=== PATIENT | male | born 1995 ===

== ENCOUNTER 2024-06-04 18:32 | Emergency (ER) | payer OTHER, SELFPAY ==
[2024-06-04 18:39] VITALS: BP 129/69
[2024-06-04 19:58] VITALS: BMI 23.3
[2024-06-04] MEDS: RABAVERT RABIES VACC W-DILUENT 2.5 UNIT IM (21:46)
[2024-06-04 21:49] VITALS: BP 112/64
--- NOTE | 2024-06-04 21:56 | ED.GENMED ---
History of Present Illness
General
Chief Complaint: Rabies
Source: patient
Time Seen by Provider: 06/04/24 20:42
History of Present Illness
History of Present Illness:
28-year-old male presents for rabies vaccine as he found a bat in his house. He states he did release it outside and flew away. He has no complaints. He saw no signs of a bite
Past History
Past History
ED Past Medical History: Asthma
Phy Exam
Physical Exam
Physical Exam:
CONSTITUTIONAL Vital signs reviewed, Patient alert and oriented to person, place and time. Well-appearing
HEAD atraumatic, normocephalic.
EYES eyelids normal to inspection, Extraocular muscles intact, Conjunctiva normal, Sclera normal.
NECK normal range of motion, Trachea midline, no jugular venous distention.
RESP no respiratory distress
UPPER EXTREMITY Gross Range of motion normal, gross motor strength normal
LOWER EXTREMITY Gross range of motion normal, Gross motor strength normal
NEURO Speech normal, No focal motor deficits include, [place] coma scale 15, Memory normal, Cranial Nerves intact to screening exam.
SKIN Skin warm, dry, and normal in color.
PSYCHIATRIC Patient oriented to person place and time, Normal affect.
Course
Orders/Labs/Results
Orders:
Orders
06/04/24 21:45
Rabies Vaccine ([facility])/Pf [Rabavert Rabies Vacc W-Diluent] 2.5 unit IM .ONCE ONE
Vital Signs
Initial and Last Documented VS:
Initial Vital Signs
Temp Pulse Resp BP Pulse Ox
98.1 F 65 20 129/69 97
06/04/24 18:39 06/04/24 18:39 06/04/24 18:39 06/04/24 18:39 06/04/24 18:39
Last Documented Vital Signs
Temp Pulse Resp BP Pulse Ox
98.1 F 53 17 112/64 97
06/04/24 18:39 06/04/24 22:13 06/04/24 22:13 06/04/24 22:13 06/04/24 18:39
MDM/Problems Addressed
MDM/Problems Addressed:
Rabies vaccination, rabies exposure
*Pulse Oximetry
Patient hypoxic: no
*Critical Care Note
Total Time (30-74mins, 75-104mins- exclusive of procedures): Not Applicable
Data Reviewed
Prescriptions/Medications Considered But Not Given:
Considered immunoglobulin but no evidence of skin break or bite
ED Attending Note
-
Portions of this chart may have been created with voice recognition software.� Occasional wrong word or��sound alike� substitutions may have occurred due to the inherent limitations of voice recognition software.
Discharge Plan
Departure
Patient Disposition: Home (Routine Discharge)
Date of Disposition: 06/04/24
Time of Disposition: 21:56
Patient with high blood pressure during this ER visit?: No
Discharge Problem:
Rabies exposure
Instructions: Rabies
Prescriptions:
No Action
hydrocodone-acetaminophen 1 TABLET tablet
1 - 2 tab PO Q4HPRN PRN (Reason: pain) Qty: 15 0RF
cephalexin [Keflex] 500 MG capsule
500 mg PO TID 2 Days Qty: 6 0RF
Referrals:
Roger Painting DO [Family Provider] -
Stand Alone Forms: Rabies Vaccine Post Exp Dosing
Interventions
Interventions:
*Risk Screen - Suicide Last Done: 06/04/24 18:39
*General Assessment Last Done: 06/04/24 18:39
*Neglect/Abuse Screening Last Done: 06/04/24 18:39
*Nursing Disposition Last Done: 06/04/24 22:13
Discharge Date and Time
Discharge Date/Time: 06/04/24 22:14
Print Language: [place]EN[place]
[2024-06-04 22:13] VITALS: BP 112/64
== END 2024-06-04 22:14 | disposition home or self-care (01) ==
LOC: EMR 18:32
PROVIDERS: EMERGENCY PHYSICIAN Emergency Medicine; FAMILY PHYSICIAN Internal Medicine
DX: Z20.3 Contact with and (suspected) exposure to rabies (principal); Z23 Encounter for immunization; J45.909 Unspecified asthma, uncomplicated
CPT/HCPCS: 99281; 90471; 90675

== ENCOUNTER 2024-06-07 15:16 | Outpatient (RCR) | payer OTHER, SELFPAY ==
[2024-06-07 15:31] VITALS: BP 128/70
[2024-06-07] MEDS: RABAVERT RABIES VACC W-DILUENT 2.5 UNIT IM (15:44)
== END 2024-06-08 23:59 | disposition home or self-care (01) ==
LOC: OID 15:16
PROVIDERS: ATTENDING PHYSICIAN Emergency Medicine; FAMILY PHYSICIAN Internal Medicine
DX: Z23 Encounter for immunization (principal); Z20.3 Contact with and (suspected) exposure to rabies
CPT/HCPCS: 90471; 90675

== ENCOUNTER 2024-06-18 13:40 | Outpatient (RCR) | payer OTHER, SELFPAY ==
[2024-06-11 13:47] VITALS: BP 138/70
[2024-06-11] MEDS: RABAVERT RABIES VACC W-DILUENT 2.5 UNIT IM (13:54)
[2024-06-18 13:40] VITALS: BP 119/68
[2024-06-18] MEDS: RABAVERT RABIES VACC W-DILUENT 2.5 UNIT IM (13:49)
== END 2024-06-19 10:13 | disposition home or self-care (01) ==
LOC: OID 13:40
PROVIDERS: ATTENDING PHYSICIAN Emergency Medicine; FAMILY PHYSICIAN Internal Medicine
DX: Z20.3 Contact with and (suspected) exposure to rabies (principal); Z23 Encounter for immunization
CPT/HCPCS: 90471; 90675